=== PATIENT | male | born 1980 | race Caucasian/White ===

== ENCOUNTER 2017-09-14 05:31 | Day surgery (SDC) | payer OTHER ==
[~2017-09-14] VITALS: Ht 180.3 cm; Wt 85.3 kg
--- NOTE | ~2017-09-14 | O ---
[facility] [place] [address] OPERATIVE REPORT Name: NALINI MOREL Room #: DEP [facility]#: [id number] Admission: 09/14/17 Attend Phys: Allen Parekh MD Discharge: 09/14/17 Date of : 76 Report #: [id number] THIS REPORT FOR: //name// CC: FLOR[place] physician/PCP Allen Parekh DATE OF SERVICE: 09/14/[address] Allen Parekh. PREOPERATIVE DIAGNOSES: Right inguinal hernia and incarcerated umbilical hernia. POSTOPERATIVE DIAGNOSES: Right inguinal hernia with right cord lipoma and an incarcerated umbilical hernia. PROCEDURE: Right inguinal hernia repair with Prolene hernia system mesh and excision of a right cord lipoma and repair of an incarcerated umbilical hernia. SURGEON: Allen Parekh M.D. ANESTHESIA: Local IV sedation. DESCRIPTION OF PROCEDURE: The patient was brought to the operating room and placed on the operative table in the supine position. Sequential compression devices were in place for DVT prophylaxis. There was no indication for preoperative antibiotics. The patient underwent IV sedation and the abdomen and right groin were prepped and draped in a sterile fashion. Skin and subcutaneous tissue around the right inguinal area was infiltrated with 0.5% Marcaine and 1% Xylocaine in a 1:1 mixture. Right inguinal skin incision was then performed using #10 scalpel blade. Hemostasis obtained using electrocautery. Dissection was carried down through subcutaneous tissue, the external oblique fascia, which was then incised with a knife and opened with the Metzenbaum scissors. The ilioinguinal nerve was identified, dissected free, injected with a local mixture and preserved. The cord was then elevated and held in place with a Fartun drain. Cremasteric muscle fibers were then split in the direction of the fibers using clamp and electrocautery. A cord lipoma was identified, dissected free, clamped, excised and tied with a 2-0 chromic tie and sent as specimen to pathology. The indirect inguinal hernia sac was identified, dissected free and reduced back through the internal ring. The floor was inspected and appeared to be intact. An extended Prolene hernia system mesh was then inserted through the internal ring and the underlay patch was then deployed in the preperitoneal space. The connector was left in the internal ring and the overlay patch was then deployed into the inguinal canal. The mesh was secured at the pubic tubercle superiorly and at the connector using simple interrupted 2-0 Vicryl sutures. The mesh was then split and wrapped around the cord, secured to the [facility] [address] [place] [address] OPERATIVE REPORT Name: NALINI MOREL Room #: DEP [facility]#: [id number] Admission: 09/14/17 Attend Phys: Allen Parekh MD Discharge: 09/14/17 Date of : 76 Report #: [id number] inguinal ligament with simple interrupted 2-0 Vicryl suture. The cord and ilioinguinal nerve were then returned to the canal intact. The external oblique fascia was then closed using running 2-0 Vicryl suture. Po fascia was then reapproximated using 3 simple interrupted 2-0 chromic sutures and the skin then closed with a running 4-0 subcuticular Vicryl stitch. Attention was then turned to the incarcerated umbilical hernia. Skin and subcutaneous tissue around the umbilicus was then infiltrated with the same 0.5% Marcaine and 1% Xylocaine local mixture. A transverse infraumbilical skin incision was then performed using #15 scalpel blade. Hemostasis obtained using electrocautery. Dissection was carried down through subcutaneous tissue to the umbilical hernia sac, which was dissected free, opened and some incarcerated preperitoneal fat and omentum were dissected free and reduced back into the abdomen. The fascial defect was fairly small, allowing only the admittance of the tip of the index finger. This was then easily closed with interrupted [id number] 0 Prolene sutures. The umbilicus was tacked to the fascia using an interrupted 2-0 chromic suture. Deep and superficial subcutaneous tissue was then reapproximated using simple interrupted 2-0 chromic sutures and the skin then closed with a running 4-0 subcuticular Vicryl stitch. The inguinal incision was dressed with Mastisol, 1/2-inch Steri-Strips cut in half, Telfa, 4 x 4 gauze, sponge and tape. The umbilical wound was dressed with Dermabond, Telfa, 4 x 4 gauze, sponge and tape. The patient was then awakened from the IV sedation and taken to recovery room awake, alert and in good condition. Estimated blood loss was approximately 10 mL total and the patient tolerated the procedure well. All sponge, lap and instrument counts correct x 2. <ELECTRONICALLY SIGNED> By: Allen Parekh MD 09/14/17 1613 [id number] Allen Parekh MD /nt
[2017-09-14 09:09] VITALS: BP 123/73
[2017-09-14] MEDS ORDERED: HYDROCODONE-AP1 EAC6 PO (11:03)
[2017-09-14 13:28] VITALS: BP 123/73
== END 2017-09-14 14:14 | disposition home or self-care (01) ==
LOC: TBA 05:31 → OR 05:31
DX: K40.90 Unilateral inguinal hernia, without obstruction or gangrene, not specified as recurrent (principal); K42.0 Umbilical hernia with obstruction, without gangrene; D17.6 Benign lipomatous neoplasm of spermatic cord; F32.9 Major depressive disorder, single episode, unspecified; Z98.890 Other specified postprocedural states; Z79.891 Long term (current) use of opiate analgesic
CPT/HCPCS: 50010; 50101; 50386; 50417; 54111; 54118; 56524; 56526; 56528; 62110; 62850; 70005